=== PATIENT | female | born 1935 | race Caucasian/White ===

== ENCOUNTER 2017-09-30 10:16 | Observation (INO) | payer MEDICARE ==
[~2017-09-30] VITALS: Ht 154.9 cm; Wt 62.3 kg
[~2017-09-30 10:16] MED LIST: ADVAIR HFA 115-12 GM INH; ALLER-FEX180 MG PO; AMBIEN10 MG PO; ASPIR 8181 MG PO; ATENOLOL100 MG PO; ATORVASTATIN CA80 MG PO; BENICAR40 MG PO; BUTRANS1 EAC1 TD; CENTRUM SILVER1 EAC5 PO; CEPHALEXIN250 M1 PO; CITRUCEL500 MG PO; COMBIVENT RESPIM4 GM INH; COUGH DROPS1 EAC1 MM; DOXYCYCLINE HY100 MG PO; FLUTICASONE PRO16 GM NAS; GABAPENTIN400 MG PO; HYDROCODON-ACE1 EA11 PO; IPRAT-ALBUT 0.5-3 ML INH; MONTELUKAST SOD10 MG PO; MUCINEX600 MG PO; NORCO 5-325 TA1 EACH PO; OMEPRAZOLE20 MG PO; OXYCODONE HCL5 MG PO; TRAMADOL HCL50 MG PO; TRIAMTERENE-HC1 EAC3 PO; VENTOLIN HFA18 GM INH; XARELTO10 MG PO
[2017-10-17] MEDS ORDERED: ULTRAM50 MG PO (12:22)
[2017-10-19] MEDS ORDERED: DOXYCYCLINE HY100 MG PO (09:49)
== END 2017-10-19 11:15 | disposition home or self-care (01) ==
LOC: MS 10-17 06:30
PROVIDERS: ADMIT Specialist
DX: L03.116 Cellulitis of left lower limb (principal); M19.012 Primary osteoarthritis, left shoulder; J45.40 Moderate persistent asthma, uncomplicated; J44.9 Chronic obstructive pulmonary disease, unspecified; E78.5 Hyperlipidemia, unspecified; I25.10 Atherosclerotic heart disease of native coronary artery without angina pectoris; I12.9 Hypertensive chronic kidney disease with stage 1 through stage 4 chronic kidney disease, or unspecified chronic kidney disease; N18.3 Chronic kidney disease, stage 3 (moderate); G62.9 Polyneuropathy, unspecified; K21.9 Gastro-esophageal reflux disease without esophagitis; Z95.3 Presence of xenogenic heart valve; Z96.651 Presence of right artificial knee joint; Z88.1 Allergy status to other antibiotic agents; Z88.5 Allergy status to narcotic agent; Z88.2 Allergy status to sulfonamides; Z79.01 Long term (current) use of anticoagulants; Z79.82 Long term (current) use of aspirin; Z79.891 Long term (current) use of opiate analgesic; Z79.51 Long term (current) use of inhaled steroids; Z79.899 Other long term (current) drug therapy
CPT/HCPCS: 36415; 80048; 85025; 85651; 94640; 96365; 96366; 96367; G0378; J0330; J0692; J0735; J1100; J2250; J2405; J2704; J3010; J3370; J3590; J7060